=== PATIENT | male | born 1985 | race Caucasian/White ===

== ENCOUNTER 2016-08-16 19:44 | Inpatient (IN) | payer OTHER ==
[~2016-08-16] VITALS: Ht 177.8 cm; Wt 69.5 kg
[2016-08-16 22:22] LABS: MCH 27.3 PG (29.0-34.0); MCHC 31.3 G/DL (30.0-36.0); MCV 87.1 FL (86-99); MEAN PLAT.VOLUME 9.3 uM^3 (9.0-12.4); PLATELET COUNT 293 K/uL (156-360); RBC DIS.WIDTH-CV 12.3 % (11.8-14.6); RBC DIS.WIDTH-SD 39.2 % (39-53); RED BLOOD COUNT 5.28 M/uL (4.00-5.50); WHITE BLOOD COUNT 10.4 K/uL (4.1-10.2)
[2016-08-16 22:33] LABS: CHLORIDE 107 mEq/L (99-109); POTASSIUM 3.9 mEq/L (3.7-5.4); SODIUM 141 mEq/L (136-147)
[2016-08-16 22:35] LABS: GLUCOSE 100 mg/dL (70-99)
[2016-08-16 22:36] LABS: ANION GAP 12 MEQ/L (2-14)
[2016-08-16 22:39] LABS: GFR ESTIMATE (CALCULATED) > 59 mL/min/
[2016-08-16 22:40] LABS: UREA NITROGEN (BUN) 16 mg/dL (9-23)
[2016-08-16 22:42] LABS: D-DIMER ELISA 1.44 mg/L FEU (< 0.57)
[2016-08-17] MEDS ORDERED: ADVIL,NUPRIN,M200 MG PO (01:53)
[2016-08-17] MEDS ORDERED: VENTOLIN HFA18 GM IH (01:54)
[2016-08-17 02:03] LABS: INTER. NORMALIZED RATIO 1.1; PROTHROMBIN TIME 10.7 (9.2-11.2); PTT 28.9 (25-32)
[2016-08-17 06:45] LABS: HEMATOCRIT 42.7 % (38.0-50.0); MCH 28.8 PG (29.0-34.0); MCV 87.1 FL (86-99); PLATELET COUNT 257 K/uL (156-360); RBC DIS.WIDTH-CV 12.4 % (11.8-14.6); RBC DIS.WIDTH-SD 39.3 % (39-53); WHITE BLOOD COUNT 10.3 K/uL (4.1-10.2)
[2016-08-17 07:20] LABS: INTER. NORMALIZED RATIO 1.1; PROTHROMBIN TIME 11.3 (9.2-11.2)
[2016-08-17 07:35] LABS: PTT 48.5 (25-32)
[2016-08-17 13:57] LABS: TROP-I INTERPRETATION NEGATIVE; TROPONIN-I < 0.01 ng/mL (0.0-0.30)
[2016-08-17 15:00] VITALS: BP 128/84
[2016-08-17 23:08] VITALS: BP 134/83
[2016-08-18 07:00] VITALS: BP 113/76
[2016-08-18 07:43] LABS: BASOPHIL COUNT 0.1 K/uL (0-0.1); EOSINOPHIL (%) 1.3 % (0-5); EOSINOPHIL COUNT 0.1 K/uL (0-0.3); HEMATOCRIT 42.1 % (38.0-50.0); IMMATURE GRANULOCYTE (%) 0.3 % (0.0-0.7); INSTRUMENT ABS NEUTROPHIL CT 5.7 K/uL; LYMPHOCYTE COUNT 1.6 K/uL (1.0-2.8); MCH 28.3 PG (29.0-34.0); MCHC 32.8 G/DL (30.0-36.0); MCV 86.4 FL (86-99); MEAN PLAT.VOLUME 8.8 uM^3 (9.0-12.4); MONOCYTE (%) 13.1 % (3-12); MONOCYTE COUNT 1.1 K/uL (0-0.8); NEUTROPHIL (%) 65.7 % (45-76); NEUTROPHIL COUNT 5.7 K/uL (1.8-6.4); PLATELET COUNT 234 K/uL (156-360); RBC DIS.WIDTH-SD 38.3 % (39-53); RED BLOOD COUNT 4.87 M/uL (4.00-5.50); WHITE BLOOD COUNT 8.7 K/uL (4.1-10.2)
[2016-08-18 08:10] LABS: ANION GAP 9 MEQ/L (2-14); CHLORIDE 103 MEQ/L (99-109); GFR ESTIMATE (CALCULATED) > 59 mL/min/; GLUCOSE 94 mg/dL (70-99); POTASSIUM 3.9 MEQ/L (3.7-5.4); SAMPLE HEMOLYSIS CHECK 0; SAMPLE ICTERIC CHECK 0; SAMPLE LIPEMIA CHECK 0; SODIUM 138 MEQ/L (136-147); UREA NITROGEN (BUN) 8 mg/dL (9-23)
[2016-08-18 08:11] LABS: INTER. NORMALIZED RATIO 1.2; PROTHROMBIN TIME 12.4 (9.2-11.2); PTT 35.5 (25-32)
[2016-08-18 15:24] VITALS: BP 112/76
[2016-08-18 23:06] VITALS: BP 115/75
[2016-08-19 03:35] LABS: INTER. NORMALIZED RATIO 1.2; PROTHROMBIN TIME 12.4 (9.2-11.2)
[2016-08-19 08:22] VITALS: BP 102/65
[2016-08-19 09:25] LABS: AMPHETAMINES QUANT VALUE 0 NG/ML; BARBITUATES QUANT VALUE 0 NG/ML; BENZODIAZEPINES QUANT VALUE 0 NG/ML; BENZODIAZEPINES, URINE SCREEN Negative (200 ng/mL); PHENCYCLIDINE QUANT VALUE 0 NG/ML
[2016-08-19 09:48] LABS: PTT 44.5 (25-32)
[2016-08-19 10:49] LABS: INTER. NORMALIZED RATIO 1.2; PROTHROMBIN TIME 12.4 (9.2-11.2)
[2016-08-19 11:18] VITALS: BP 112/79
[2016-08-19 15:00] VITALS: BP 140/67
[2016-08-19 23:30] VITALS: BP 130/67
[2016-08-20 07:11] LABS: BASOPHIL COUNT 0.1 K/uL (0-0.1); EOSINOPHIL (%) 5.1 % (0-5); EOSINOPHIL COUNT 0.3 K/uL (0-0.3); HEMATOCRIT 41.2 % (38.0-50.0); IMMATURE GRANULOCYTE (%) 0.5 % (0.0-0.7); INSTRUMENT ABS NEUTROPHIL CT 3.1 K/uL; MCH 28.1 PG (29.0-34.0); MCV 87.8 FL (86-99); MEAN PLAT.VOLUME 9.4 uM^3 (9.0-12.4); MONOCYTE (%) 12.7 % (3-12); MONOCYTE COUNT 0.8 K/uL (0-0.8); NEUTROPHIL (%) 48.9 % (45-76); NEUTROPHIL COUNT 3.1 K/uL (1.8-6.4); PLATELET COUNT 244 K/uL (156-360); RBC DIS.WIDTH-CV 12.1 % (11.8-14.6); RED BLOOD COUNT 4.69 M/uL (4.00-5.50); WHITE BLOOD COUNT 6.3 K/uL (4.1-10.2)
[2016-08-20 07:16] LABS: INTER. NORMALIZED RATIO 1.3; PROTHROMBIN TIME 13.6 (9.2-11.2); PTT 69.7 (25-32)
[2016-08-20 07:36] LABS: ALKALINE PHOSPHATASE 49 IU/L (3-129); ANION GAP 6 MEQ/L (2-14); CHLORIDE 105 MEQ/L (99-109); GFR ESTIMATE (CALCULATED) > 59 mL/min/; GLUCOSE 94 mg/dL (70-99); POTASSIUM 4.2 MEQ/L (3.7-5.4); SAMPLE HEMOLYSIS CHECK 0; SAMPLE ICTERIC CHECK 0; SAMPLE LIPEMIA CHECK 0; SODIUM 141 MEQ/L (136-147); TOTAL BILIRUBIN 0.4 MG/DL (0.0-1.0); UREA NITROGEN (BUN) 11 mg/dL (9-23)
[2016-08-20 09:15] VITALS: BP 120/84
[2016-08-20] MEDS ORDERED: NICOTINE PATCH1 EAC2 TD (10:53)
[2016-08-20] MEDS ORDERED: ELIQUIS5 MG PO (10:53)
[2016-08-20 12:00] VITALS: BP 139/98
[2016-08-22 19:34] LABS: ANTITHROMBIN III ACTIVITY+ 109 (80-120); DRVVT Mixing Study Interp Not Indicated (()); PROTEIN C FUNCTIONAL ACTIVITY+ 38 % (70-180); PTT-LA 76 sec (<=40); Protein S, Free 108 % normal (57-171); dRVVT Screen 36 sec (<=45)
== END 2016-08-20 13:29 | disposition home or self-care (01) | DRG 299 ==
LOC: EME 19:44 → EDOF 08-17 02:50 → 5EAST 08-17 02:50
PROVIDERS: Hospitalist; Internal Medicine; Internal Medicine Hematology & Oncology; Physician Assistant
DX: I82.411 Acute embolism and thrombosis of right femoral vein (principal); I26.99 Other pulmonary embolism without acute cor pulmonale; R04.2 Hemoptysis; F17.210 Nicotine dependence, cigarettes, uncomplicated; I82.491 Acute embolism and thrombosis of other specified deep vein of right lower extremity; R09.1 Pleurisy; F12.10 Cannabis abuse, uncomplicated; F14.10 Cocaine abuse, uncomplicated
CPT/HCPCS: 71020; 71275; 80048; 80053; 80306 90; 81240 90; 83090 90; 83735; 83880; 84484; 85025; 85027; 85240 90; 85300 90; 85303 90; 85305 90; 85306 90; 85379; 85610; 85613 90; 85730; 85730 90; 86146 90; 86147 90; 93005; 93306; 93970; 94640; 94640 76; 99202; 99281; 99285; J1170; J1885; J2270